=== PATIENT | female | born 1985 | race Caucasian/White ===

== ENCOUNTER 2016-09-19 19:07 | Inpatient (IN) | payer OTHER ==
--- NOTE | ~2016-09-19 | DS ---
Unit #: [id number] #: [id number] Patient: AMANDA RIVAS [id number] [facility] [address] [place] [address] [id number] MR#: [id number] NAME: AMANDA RIVAS ROOM: [facility] Age: 31 Sex: F Admission Date: 09/19/2016 : 1985 Discharge Date: 09/23/2016 Attending Physician: Zoltan Cabrera M.D. Primary Care Physician: Esteban Tellez M.D. DISCHARGE SUMMARY REASON FOR ADMISSION Polysubstance detox. DIAGNOSTIC STUDIES LABORATORY RESULTS: Unremarkable. HOSPITAL COURSE The patient was admitted to inpatient unit on 09/19/2016 and discharged on 09/23/2016. The patient was treated on the inpatient unit with detox protocol, detox monitoring, chemical dependency group, expressive therapy, medication management, psychoeducation, psychotherapy, and structured milieu. The patient responded well and received maximum benefit. The patient was subsequently discharged with a plan to follow up in outpatient clinic. DISCHARGE MEDICATIONS Keflex 750 mg b.i.d. for 7 days for upper respiratory tract infection. DISCHARGE DIAGNOSES Psychiatric: 1. Opioid use disorder, severe, F11.20. 2. Amphetamine use disorder, severe. 3. Alcohol use disorder, severe. 4. Mood disorder, not otherwise specified. Secondary diagnosis: Deferred. Medical diagnoses: History of hepatitis C, joint disorder, upper respiratory tract infection. Stressors: Psychosocial stressors. DISCHARGE INSTRUCTIONS The patient is to follow up in outpatient clinic as per criminal justice social worker. CONDITION ON DISCHARGE The patient was pleasant and cooperative. Denied any psychotic symptom or any suicidal ideation. PROGNOSIS Guarded. DIET AND ACTIVITY As tolerated. Unit #: [id number] #: [id number] Patient: AMANDA RIVAS Dictated by... Lorrie Luther/oh TD: 09/23/2016 19:21 JOB #: [id number] DISCHARGE SUMMARY X Zoltan Cabrera MD X DISCHARGE SUMMARY
--- NOTE | ~2016-09-19 | CO ---
Unit #: [id number] #: [id number] Patient: AMANDA RIVAS [id number] [place] [address] [id number] MR#: [id number] NAME: AMANDA RIVAS ROOM: [facility] Age: 31 Sex: F Admission Date: 09/19/2016 : 1985 Attending Physician: Zoltan Cabrera M.D. Primary Care Physician: Esteban Tellez M.D. Consultation Date: 09/20/2016 CONSULTATION REPORT HISTORY OF PRESENT ILLNESS Ms. Arboleda reports injecting heroin daily. About a week ago, she noticed an abscess on her left arm that has become painful and red and does not seem to be getting any better. No fever. No drainage from the abscess. No other complaints. PHYSICAL EXAMINATION CARDIAC: Regular rate and rhythm. No murmurs, gallops, or rubs. RESPIRATORY: Clear to auscultation bilaterally. SKIN: 1.5 cm round erythemic papule on left forearm without drainage, streaking, or warmth. The patient does report tenderness to palpation. ASSESSMENT AND PLAN Left forearm abscess. We will begin Keflex 750 mg p.o. b.i.d. Please notify if symptoms are unresolved. May need to consider I and D. Dictated by... Rebecca Parada A.P.R.N. for Lorrie Leigh/oh TD: 09/20/2016 17:46 JOB #: [id number] CONSULTATION REPORT X REBECCA BRANDT APRN X CONSULTATION REPORT
--- NOTE | ~2016-09-19 | A ---
[facility] Nutrition Therapy DATE: 09/22/16 Patient: AMANDA RIVAS Physician: AISHWARYA Address: [address] [place] [address] Room/Bed: [address], Zip: [place] [address] Admit Date: 09/19/16 Date of : [birth year] Height: 5 3 Weight: 89 40.08282 NUTRITIONAL ASSESSMENT: REASON: Low BMI Admitting Dx: 31 y/o female undergoing detox from heroin, meth, ETOH PMH: Hep C, joint disorder, PSA, daily smoker Anthropometrics: Ht: 63", Wt: 90 lbs, BMI: 16, 78% IBW Labs: No labs available Meds: Mag-Al, Milk of Mg, Loperamide, Phenergan, Zofran, MVI, Thiamine, Folic acid, Balance B-50, psych meds noted Skin Integrity: Abscess L arm Assessment: Chart reviewed, events noted. Patient is single, unemployed, lives with parents. Currently undergoing detox from ETOH, heroin and meth. Medical consult performed by COMBAT CONTROL MANAGER due to left arm abscess, no drainage. Patient is on a regular diet, she is clinically underweight, reports poor appetite upon admission with 20 lb weight loss in the past 2 years (18% loss; mild). No past weights available for comparison. Patient has been sleeping a lot, isolative to room, now getting up for meals. RD unable to locate patient for interview as she was not in her room or in the halls or lounge areas, assume perhaps she is in group therapy for the first time since admission. Appetite now fair, RD wrote in chart to order Ensure TID, will follow to further determine PO intake and nutritional needs. See recs below. Dx: Underweight r/t drug abuse AEB 18% body weight loss in 2 years, BMI 16, 78% IBW. Intervention: Ensure TID Monitoring, Evaluation and Goals: 1. Adequate oral intake > 50% of meals/supp. 2. Gradual weight gain towards a healthy BMI range. Monitor: Per protocol, criteria to determine if above goals met Recommendations: 1. Continue regular diet, appreciate staff to encourage adequate oral intake. Offer snacks prn. [facility] Nutrition Therapy DATE: 09/22/16 Patient: AMANDA RIVAS Physician: AISHWARYA Address: [address] [place] [address] Room/Bed: P176-[address] [facility], Zip: [place] [address] Admit Date: 09/19/16 Date of : [birth year] Height: 5 3 Weight: [address] wrote in chart for MD to order Ensure TID (available in chocolate/vanilla). Please encourage patient to drink. 3. Please weigh q 3 days for monitoring purposes, as the patient is underweight. 4. Continue vitamins. Moderate nutrition risk Will follow Respectfully, Swetha Sanchez RD, LD [facility] cc: client file
--- NOTE | ~2016-09-19 | HP ---
Unit #: [id number] #: [id number] Patient: NKECHI RIVAS [id number] [place] [address] [id number] MR#: [id number] NAME: NKECHI RIVAS ROOM: [facility] Age: 31 Sex: F Admission Date: 09/19/2016 : 1985 Attending Physician: Zoltan Cabrera M.D. Admitting Physician: Zoltan Cabrera M.D. Primary Care Physician: Esteban Tellez M.D. HISTORY AND PHYSICAL HISTORY OF PRESENT ILLNESS Nkechi is a 31-year-old female admitted on 09/19/2016 to [facility] for detox from alcohol, heroin, marijuana and meth. PAST MEDICAL HISTORY 1. Hepatitis C. 2. Joint disorder. PAST SURGICAL HISTORY None documented. ALLERGIES None. SOCIAL HISTORY Smokes 5 cigarettes daily. Drinks several beers daily and uses heroin, marijuana and meth daily. She is currently single and living with her parents. FAMILY HISTORY Noncontributory. REVIEW OF SYSTEMS CONSTITUTIONAL: No fever or chills. HEENT: Denies any sore throat, ear pain or runny nose. CARDIOVASCULAR: Denies chest pain, irregular heart rhythm or palpitations. CHEST: Denies shortness of breath or cough. No hemoptysis. GASTROINTESTINAL: Denies nausea, vomiting, diarrhea or chronic constipation. ENDOCRINE: Denies history of increased thirst or urination. No recent significant weight loss or gain. GENITOURINARY: Denies dysuria, frequency, or hematuria. SKIN: Denies any rashes. HEMATOLOGIC: Denies history of increased bleeding or bruising. MUSCULOSKELETAL: Denies any hot, swollen joints. No generalized muscle pain. NEUROLOGIC: Denies problems with vision or speech. No frequent, severe headaches. No numbness, tingling or weakness in any extremities. Denies loss of bladder or bowel control. CURRENT MEDICATIONS None. Unit #: [id number] #: [id number] Patient: NKECHI RIVAS PHYSICAL EXAMINATION GENERAL: Alert, oriented, in no acute distress. VITAL SIGNS: Blood pressure 112/76, heart rate 104, respirations 16. HEIGHT: 5 feet 3. WEIGHT: 90 pounds. SKIN: Warm and dry without rash or lesion. HEENT: Normocephalic. TMs not viewed. Oral and nasal passages clear. Conjunctivae clear. PERRLA. EOMs intact. NECK: Supple without lymphadenopathy or thyromegaly. HEART: Regular rate and rhythm without murmur. LUNGS: Clear. ABDOMEN: Soft, nontender, without masses or hepatosplenomegaly. : Not done. EXTREMITIES: No evidence of cyanosis, clubbing or edema. Moves all without focal deficit. NEUROLOGICAL: Grossly within normal limits. Cranial Nerves: II: Visual novoa are intact. III, IV AND : Extraocular movements are intact. Pupils are equal, round and reactive to light. V: Facial sensation is grossly normal. VII: Facial movements and expression are normal. VIII: Auditory acuity grossly intact. IX, X: Uvula is midline. Phonation is normal. XI: Patient shrugs shoulders and turns head normally. XII: Tongue protrudes in the midline. Sensory and Motor Function: Sensory and motor sensation is grossly normal. Motor: moves all extremities well. Coordination: Gait is normal. Deep Tendon Reflexes: Intact. IMPRESSION 1. Psychiatric admission. 2. Hepatitis C. 3. Joint disorder. RECOMMENDATIONS PSYCHIATRIC: Per psychiatrist. MEDICAL: No contraindications to participate in facility's activities. MEDICAL PROGNOSIS Good. MEDICAL CONDITION Stable. Dictated by... Shila Menchaca/kat TD: 09/20/2016 17:28 JOB #: [id number] Unit #: [id number] #: [id number] Patient: NKECHI RIVAS HISTORY AND PHYSICAL X REE BRANDT APRN X HISTORY AND PHYSICAL
--- NOTE | ~2016-09-19 | PN ---
Unit #: [id number] #: [id number] Patient: NKECHI RIVAS [id number] [facility] [address] [place] [address] [id number] MR#: [id number] NAME: NKECHI RIVAS ROOM: [facility] Age: 31 Sex: F Admission Date: 09/19/2016 : 1985 Attending Physician: Zoltan Cabrera M.D. Admitting Physician: Zoltan Cabrera M.D. Primary Care Physician: Lorrie Garcia PROGRESS NOTES DATE 09/20/2016 DISCUSSION Ms. Nkechi Rivas is a 31-year-old female seen on 09/20/2016. The patient interviewed, chart reviewed. Obtained information from nursing staff. The patient adjusting fairly well, withdrawn, isolative, flat affect, guarded. The patient still having withdrawal symptoms, anxious, nervous, sad, depressed. The patient's vital signs 98.4, 83, 94/54. Complete review of systems unremarkable. MENTAL STATUS EXAMINATION General appearance, the patient dressed casually. Attention span and concentration poor. Oriented to place and person. Mood and affect labile. Speech regular rate. Thought process goal directed. The patient denied any thoughts of harming self or others or any psychotic symptoms. Recent and remote memory poor. Insight and judgement poor. DIAGNOSES Polysubstance abuse, alcohol, methamphetamine and opiates severe. ASSESSMENT/PLAN Continue with the current treatment. If needed consider further adjustment of medication. Dictated by... Lorrie Luther/jillian TD: 09/23/2016 21:43 JOB #: [id number] Unit #: [id number] #: [id number] Patient: NKECHI RIVAS PROGRESS NOTES X Zoltan Cabrera MD X PROGRESS NOTE
--- NOTE | ~2016-09-19 | PN ---
Unit #: [id number] #: [id number] Patient: NKECHI RIVAS [id number] [facility] [address] [place] [address] [id number] I MR#: [id number] NAME: NKECHI RIVAS ROOM: [facility] Age: 31 Sex: F Admission Date: 09/19/2016 : 1985 Attending Physician: Zoltan Cabrera M.D. Admitting Physician: Zoltan Cabrera M.D. Primary Care Physician: Lorrie Garcia PROGRESS NOTES DATE 09/21/2016 DISCUSSION Ms. Nkechi Rivas is a 31-year-old female seen on 09/21/2016. The patient has been compliant and cooperative, isolative with flat affect, seemed sad dysphoric, anxious. Complete review of systems unremarkable. MENTAL STATUS EXAMINATION General appearance, the patient dressed casually. Attention span and concentration fair. Oriented to place and person. Mood and affect sad, dysphoric. Speech monotone. Thought process concrete. The patient denied any thoughts of harming self or others but guarded. Recent and remote memory poor. Insight and judgement poor. DIAGNOSES Polysubstance abuse. ASSESSMENT/PLAN Advise to continue with current medication and therapeutic protocol. We will monitor response to medication and make further adjustment of medication. Dictated by... Lorrie Luther/jillian TD: 09/23/2016 22:29 JOB #: [id number] [facility] PROGRESS NOTES X Zoltan Cabrera MD PROGRESS NOTE
--- NOTE | ~2016-09-19 | PN ---
Unit #: [id number] #: [id number] Patient: NKECHI RIVAS [id number] [facility] [address] [place] [address] [id number] I MR#: [id number] NAME: NKECHI RIVAS ROOM: [facility] Age: 31 Sex: F Admission Date: 09/19/2016 : 1985 Attending Physician: Zoltan Cabrera M.D. Admitting Physician: Zoltan Cabrera M.D. Primary Care Physician: Lorrie Garcia PROGRESS NOTES DATE OF SERVICE 09/22/2016 DISCUSSION Ms. Nkechi Rivas is a 31-year-old female seen on 09/22/2016. The patient interviewed, chart reviewed. Obtained information from nursing staff. The patient was complaining of body ache, weakness, anxious, nervous, but denied any suicidal ideation. Compliant with medication. Currently on detox protocol. Complete Review of Systems: Unremarkable. MENTAL STATUS EXAMINATION General Appearance: The patient dressed casually. Thin built, withdrawn, isolative. The patient denied any complaints. Attention span, concentration: Fair. Oriented in time, place, and person. Mood and affect: Sad, dysphoric. Speech: Monotone. Thought process: Howard. Association: The patient denied any thoughts of harming self or others or any psychotic symptom. Recent and remote memory: Fair. Insight and judgment: Fair to poor. DIAGNOSES 1. Polysubstance abuse. 2. Opiate withdrawals. 3. Opiate abuse, severe. ASSESSMENT/PLAN Advised to continue with current medication and therapeutic protocol. We will monitor response to medication and make further adjustment of medication. Dictated by... Lorrie Luther/nola TD: 09/24/2016 09:30 JOB #: [id number] Unit #: [id number] #: [id number] Patient: NKECHI RIVAS PROGRESS NOTES X Zoltan Cabrera MD PROGRESS NOTE
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
[2016-09-22 16:43] LABS: URINE APPEARANCE CLEAR; URINE BILIRUBIN NEG (NEG); URINE BLOOD NEG (NEG); URINE COLOR YELLOW; URINE GLUCOSE NEG (NEG); URINE KETONE NEG (NEG); URINE LEUKOCYTE ESTERASE NEG (NEG); URINE NITRATE NEG (NEG); URINE PH 7.5 (5-8); URINE PROTEIN NEG (NEG); URINE SPECIFIC GRAVITY 1.009 (1.003-1.035); URINE UROBILINOGEN 0.2 MG/DL (NEG)
[2016-09-22 17:26] LABS: AMPHETAMINE NEG (NEG); BARBITURATES NEG (NEG); BENZODIAZEPINES NEG (NEG); COCAINE NEG (NEG); MARIJUANA NEG (NEG); OPIATES NEG (NEG); TRICYCLIC ANTIDEPRESSANTS NEG (NEG); U METHADONE NEG (NEG)
== END 2016-09-23 10:15 | DRG 897 ==
LOC: P1E 19:07
PROVIDERS: Psychiatry & Neurology Psychiatry
PROC: HZ2ZZZZ Detoxification Services for Substance Abuse Treatment (ICD-10-PCS; principal; 2016-09-19)
DX: F11.20 Opioid dependence, uncomplicated (principal); F15.20 Other stimulant dependence, uncomplicated; L02.414 Cutaneous abscess of left upper limb; F10.20 Alcohol dependence, uncomplicated; F39 Unspecified mood [affective] disorder; B19.20 Unspecified viral hepatitis C without hepatic coma; Z72.0 Tobacco use; M25.9 Joint disorder, unspecified; J06.9 Acute upper respiratory infection, unspecified
CPT/HCPCS: 80307; 81003